=== PATIENT | male | born 1940 | race Caucasian/White ===

== ENCOUNTER 2022-04-08 06:38 | Inpatient (IN) | payer MEDICARE ==
[2022-04-08] MEDS ORDERED: ALBUTEROL 2.5 MG/3 ML NEBU IH ONE (07:41)
[2022-04-08] MEDS ORDERED: IPRATROPIUM 0.02% NEBU 2.5 ML IH ONE (07:41)
--- NOTE | 2022-04-08 08:01 | Emergency Department Report ---
ED Shortness of Breath HPI - General Chief Complaint: Dyspnea/Respdistress Stated Complaint: COPD/ABDOMINAL PAIN Time Seen by Provider: 04/08/22 07:29 Source: patient, family, old records reviewed Mode of arrival: Ambulatory Limitations: Language Barrier - History of Present Illness Initial Comments: 82-year-old male presents to the hospital complaining of shortness of breath since last night. EMS came to the home but patient ultimately was taken to [place] last night by a family member. After [place] work-up and evaluation patient was sent to the ER here. Patient was initially evaluated on June 05 and then returned last night for evaluation due to shortness of breath. Patient was seen on June 05 prescribed several medications without improvement. No fever reported. Patient denies home oxygen use. Son at the bedside is translating however, patient and family member cannot provide detailed past medical history therefore [place] medical record reviewed On June 05 (4 days ago) patient was prescribed the following (in addition to his current medication) Fluconazole on, Bactrim, prednisone 6-day taper, and Vistaril as needed itching. As per [place] records patient has a history hypertension, BPH, CAD, emphysema, mitral valve regurgitation, aortic valve regurgitation, atherosclerosis of the aorta, and a renal cyst [place] physician documented patient at a chronic cough x6 months, a remote history of smoking with a diagnosis of emphysema bronchiectasis. Patient had an echo on August 08 showing normal EF with mild MR and AR. Patient reported shortness of breath (presented with respiratory distress), reports of syncope the prior day, and abdominal pain and received evaluation. He was noted to have wheezing in all storm with abdominal distention with generalized tenderness. He was also noted to have orthostatic hypotension and dizziness with increased heart rate with standing. Labs included a normal troponin, WBC count of 16.5, normal TSH, and mild electrolyte abnormalities including sodium of 129, chloride of 95, glucose 132, BUN 31, creatinine 1.6 with normal potassium of 5.2. LFTs normal. Patient received the following imaging studies CT abdomen pelvis with IV contrast showing no acute abnormality. Bowel dilatation without obstruction. Moderate fecal retention in the colon with feces present in the distal ileum suggestive of slow bowel transit and stasis. Emphysema and scarring/atelectasis noted at the lower thorax. Multiple renal cysts bilaterally largest 4.5 cm on the right without hydronephrosis. CT chest without IV contrast: Moderate diffuse emphysema cannot exclude mild bronchitis (mild bronchial wall thickening in the lower lung zones bilaterally with minimal mucous plugging in the left lower lobe) Chest x-ray 2 views: No acute finding During treatment at [facility] patient was treated with several nebulized treatments, Solu-Medrol, Toradol, Zofran, normal saline, lactulose, Reglan, milk of magnesium, Protonix, and guaifenesin AC prior to ED presentatonb - Related Data Previous Rx's Medication Instructions Recorded Last Taken Type Albuterol *Only Ed* [Proventil 2.5 mg IH TIDRT #1 nebu 11/10/15 Unknown Rx 0.5% NEBS] Dutasteride [Avodart] 0.5 mg PO QDAY #30 capsule 11/10/15 Unknown Rx Loratadine (Nf) [Claritin (Nf)] 10 mg PO DAILY #10 tablet 11/10/15 Unknown Rx amLODIPine 10 mg PO DAILY #30 tablet 11/10/15 Unknown Rx carvediloL [Coreg] 6.25 mg PO BID #60 tablet 11/10/15 Unknown Rx guaiFENesin/CODEINE [Robitussin AC] 5 ml PO Q4H PRN #20 oral.liqd 11/10/15 Unknown Rx levoFLOXacin [Levaquin TAB] 500 mg PO QDAY #4 tablet 11/10/15 Unknown Rx Allergies Allergy/AdvReac Type Severity Reaction Status Date / Time No Known Allergies Allergy Verified 11/07/15 11:54 ED Review of Systems ROS: Stated complaint: COPD/ABDOMINAL PAIN Other details as noted in HPI Comment: All other systems reviewed and negative ED Past Medical Hx - Past Medical History Previous Medical History?: Yes Hx Hypertension: Yes Additional medical history: CAD, BPH, Eczema. Eczema - Surgical History Past Surgical History?: Yes Additional Surgical History: back surgery - Social History Smoking Status: Never Smoker Substance Use Type: None - Medications Home Medications: Home Medications Medication Instructions Recorded Confirmed Last Taken Type Albuterol *Only Ed* [Proventil 2.5 mg IH TIDRT #1 nebu 11/10/15 Unknown Rx 0.5% NEBS] Dutasteride [Avodart] 0.5 mg PO QDAY #30 capsule 11/10/15 Unknown Rx Loratadine (Nf) [Claritin (Nf)] 10 mg PO DAILY #10 tablet 03/24/16 Unknown Rx amLODIPine 10 mg PO DAILY #30 tablet 11/10/15 Unknown Rx carvediloL [Coreg] 6.25 mg PO BID #60 tablet 11/10/15 Unknown Rx guaiFENesin/CODEINE [Robitussin AC] 5 ml PO Q4H PRN #20 oral.liqd 11/10/15 Unknown Rx levoFLOXacin [Levaquin TAB] 500 mg PO QDAY #4 tablet 11/10/15 Unknown Rx ED Physical Exam - General Limitations: No Limitations - Other Other exam information: General: No acute distress Head: Atraumatic Eyes: normal appearance ENT: Moist mucous membranes Neck: Normal appearance, no midline tenderness Chest: Frequent cough, bilateral wheezing CV: Regular rate and rhythm Abdomen: Soft, normal bowel sounds, nontender, nondistended, no rebound or guarding Back: Normal inspection Extremity: Normal inspection, full range of motion, no calf tenderness or leg edema Neuro: Alert, no facial asymmetry, speech clear, no gross motor sensory deficit Psych: Appropriate behavior Skin: No rash ED Course Vital Signs 04/08/22 04/08/22 04/08/22 06:38 08:13 09:53 Temperature 98 F Pulse Rate 105 H 74 Pulse Rate [ 88 Anterior] Respiratory 18 18 Rate Respiratory 22 Rate [Anterior] Blood Pressure 165/82 Blood Pressure 134/66 [Left] O2 Sat by Pulse 96 99 Oximetry 04/08/22 04/08/22 11:31 11:39 Temperature Pulse Rate 98 H 99 H Pulse Rate [ Anterior] Respiratory 18 19 Rate Respiratory Rate [Anterior] Blood Pressure Blood Pressure 145/68 146/76 [Left] O2 Sat by Pulse 99 99 Oximetry - Consultations Consultation #1: 04/08/22 09:50 case d/w Shiraz [place]aney who granted permission to admit here - ABG Interpretation Ph: 7.4 PCO2: 30 PO2: 62 Bicarbonate: 18 Interpretation: other (mild hypoxia) Additional Comments: room air blood gas ED Medical Decision Making - Lab Data Result diagrams: 04/08/22 07:52 04/08/22 07:52 Lab Results 04/08/22 04/08/22 04/08/22 Range/Units 07:52 07:52 Unknown WBC 14.3 H (4.5-11.0) K/mm3 RBC 3.90 (3.65-5.03) M/mm3 Hgb 12.5 (11.8-15.2) gm/dl Hct 36.8 (35.5-45.6) % MCV 94 (84-94) fl MCH 32 (28-32) pg MCHC 34 (32-34) % RDW 13.3 (13.2-15.2) % Plt Count 284 (140-440) K/mm3 Seg Neutrophils % [employer] ABG pH 7.403 (7.350-7.450) pH Units ABG pCO2 30.3 mm Hg ABG pO2 62.5 L (80.0-90.0) mm Hg ABG HCO3 18.5 L (20.0-26.0) mmol/L ABG O2 Saturation 92.9 L (95.0-99.0) % ABG O2 Content 16.4 (0.0-44) ABG Base Excess -5.1 L (-2.0-3.0) mmol/L ABG Hemoglobin 12.8 L (14.0-18.0) gm/dl ABG Carboxyhemoglobin 1.3 (0.0-5.0) % ABG Methemoglobin 0.7 (0.0-1.5) % Oxyhemoglobin 91.1 L (95.0-99.0) % FiO2 21 % Sodium 130 L (137-145) mmol/L Potassium 4.8 (3.6-5.0) mmol/L Chloride 97.7 L (98-107) mmol/L Carbon Dioxide 21 L (22-30) mmol/L Anion Gap 16 mmol/L BUN 30 H (9-20) mg/dL Creatinine 1.6 H (0.8-1.3) mg/dL Estimated GFR 42 ml/min BUN/Creatinine Ratio 19 % Glucose 142 H (75-100) mg/dL Calcium 8.6 (8.4-10.2) mg/dL Total Bilirubin 0.20 (0.1-1.2) mg/dL AST 23 (5-40) units/L ALT 26 (7-56) units/L Alkaline Phosphatase 53 (35-129) units/L Troponin T < 0.010 (0.00-0.029) ng/mL NT-Pro-B Natriuret Pep 438.4 (0-900) pg/mL Total Protein 6.2 L (6.3-8.2) g/dL Albumin 4.1 (3.9-5) g/dL Albumin/Globulin Ratio 2.0 % - EKG Data -: EKG Interpreted by [facility] EKG shows normal: sinus rhythm (106), ST-T waves (no stemi) Rate: tachycardia - Radiology Data Radiology results: report reviewed XR chest 1V ap INDICATION / CLINICAL INFORMATION: sob. COMPARISON: 11/07/2015 FINDINGS: SUPPORT DEVICES: None. HEART /PULMONARY VASCULATURE: No significant abnormality. LUNGS / PLEURA: Streaky bibasilar volume loss. No focal airspace consolidation. No sizable pleural effusion.. No pneumothorax. ADDITIONAL FINDINGS: No significant additional findings. IMPRESSION: 1. No acute findings. - Medical Decision Making 32-year old male presents to the hospital with persistent wheezing despite outpatient treatment and recent [facility] treatment for wheezing and shortness of breath. Patient did endorse chest pain and has negative troponin here and prior to arrival without ischemic findings on EKG. Chest x-ray unremarkable. ABG shows hypoxia without CO2 retention or acid-base disturbance. Patient treated in the ED with additional nebs and received steroids and magnesium prior to ED arrival. Case anneliese with [place] doctor who granted permission to admit here. Case discussed with hospitalist for admission Critical Care Time: No Critical care attestation.: If time is entered above; I have spent that time in minutes in the direct care of this critically ill patient, excluding procedure time. ED Disposition Clinical Impression: COPD with acute exacerbation, Failure of outpatient treatment, Renal insufficiency Disposition: ADMITTED INPATIENT Is pt being admited?: Yes Does the pt Need Aspirin: No Condition: Stable Time of Disposition: 10:10 (Dr Espinal/hospitalist)
--- NOTE | 2022-04-08 08:03 | XRay Report ---
XR chest 1V ap INDICATION / CLINICAL INFORMATION: sob. COMPARISON: 11/07/2015 FINDINGS: SUPPORT DEVICES: None. HEART /PULMONARY VASCULATURE: No significant abnormality. LUNGS / PLEURA: Streaky bibasilar volume loss. No focal airspace consolidation. No sizable pleural ef fusion.. No pneumothorax. ADDITIONAL FINDINGS: No significant additional findings. IMPRESSION: 1. No acute findings. Signer Name: Lexa Bernardo MD Signed: 04/08/2022 7:58 AM Workstation Name: [id number]
[2022-04-08 08:25] LABS: ABG Base Excess -5.1 mmol/L (-2.0-3.0); ABG HCO3 18.5 mmol/L (20.0-26.0); ABG Methemoglobin 0.7 % (0.0-1.5); ABG Oxygen Saturation 92.9 % (95.0-99.0); ABG PCO2 30.3 mm Hg; ABG PH 7.403 pH Units (7.350-7.450); ABG PO2 62.5 mm Hg (80.0-90.0)
[2022-04-08 08:30] LABS: Hematocrit 36.8 % (35.5-45.6); Hemoglobin 12.5 gm/dl (11.8-15.2); Mean Corpuscular HGB Conc 34 % (32-34); Mean Corpuscular Volume 94 fl (84-94); Platelet Count 284 K/mm3 (140-440); Red Cell Distribution Width 13.3 % (13.2-15.2)
[2022-04-08 08:37] LABS: Alanine Aminotransferase 26 units/L (7-56); Albumin 4.1 g/dL (3.9-5); BUN/Creatinine Ratio 19; Blood Urea Nitrogen 30 mg/dL (9-20); Calcium 8.6 mg/dL (8.4-10.2); Hemolysis Index 3
[2022-04-08] MEDS ORDERED: SODIUM CHLORIDE 0.9% 1000 ML 1,000 ML IV ONE (09:28)
[2022-04-08] MEDS ORDERED: ONDANSETRON 4 MG/2 ML INJ IV PRN ×2 (10:11→12:02)
[2022-04-08] MEDS ORDERED: ACETAMINOPHEN 325 MG TAB PO PRN ×2 (10:11→12:02)
[2022-04-08] MEDS ORDERED: MORPHINE 2 MG/1 ML INJ IV PRN (10:12)
[2022-04-08] MEDS ORDERED: hydrALAZINE 20 MG/1 ML INJ IV PRN (12:02)
[2022-04-08] MEDS ORDERED: HYDROcodone/ACETAMINOPHEN 5-325 MG TAB PO PRN (12:02)
[2022-04-08] MEDS ORDERED: ALBUTEROL 8.5 GM MDI INHALATION IH PRN (12:02)
--- NOTE | 2022-04-08 12:13 | History and Physical Report ---
History of Present Illness Date of examination: 04/08/22 Date of admission: 04/08/22 Chief complaint: SOB History of present illness: Patient is a 75-year-old [place] male with past medical history of hypertension, BPH who comes in with complaints of shortness of breath for last few days and has been progressively getting worse. Symptoms associated with the productive cough with greenish phlegm. Otherwise no other complaints. Denies any orthopnea or PND. Denies any leg swelling. Denies any fever, chills, headache, dizziness, nausea, vomiting, chest pain, abdominal pain or bowel disturbances. Patient does a chronic trouble urinating and has been on the Avodart. Patient found to be hypoxic at 88% upon initial presentation to the ED. Subsequent testing including chest x-ray did not reveal any acute pathology. However, patient continued to have some dyspnea with wheezing and therefore admitted to hospitalist service for further management. Labs included a normal troponin, WBC count of 16.5, normal TSH, and mild electrolyte abnormalities including sodium of 129, chloride of 95, glucose 132, BUN 31, creatinine 1.6 with normal potassium of 5.2. LFTs normal. Past History Past Medical History: hypertension, other (BPH) Past Surgical History: No surgical history Social history: , lives with family, smoking (half-pack per day for 20 years. Quit smoking 20 years ago.), alcohol abuse (occasional beer), full code. denies: IV drug use Family history: no significant family history Review of System: Constitutional: no fever, no chills, no weight loss Ears, eyes, nose, mouth and throat: no nasal congestion, no nasal discharge, no sinus pressure, no vision change, no red eye. Neck: No neck pain or rigidity. Cardiovascular: No chest pain, no orthopnea, no palpitations, no leg swelling Respiratory: + shortness of breath, + cough, no congestion, + wheezing Gastrointestinal: no abdominal pain, no nausea, no vomiting Genitourinary : no dysuria, no hematuria Musculoskeletal: no joint swelling or muscle ache Integumentary: no rash, no pruritis Neurological: no parathesias, no numbness, no tingling Endocrine: no cold or heat intolerance, no polyuria or polydipsia Hematologic/Lymphatic: no easy bruising, no easy bleeding, no gland swelling Allergic/Immunologic: no urticaria, no angioedema. Medications and Allergies Allergies Allergy/AdvReac Type Severity Reaction Status Date / Time No Known Allergies Allergy Verified 11/07/15 11:54 Home Medications Medication Instructions Recorded Confirmed Last Taken Type Albuterol *Only Ed* [Proventil 2.5 mg IH TIDRT #1 nebu 11/10/15 Unknown Rx 0.5% NEBS] Dutasteride [Avodart] 0.5 mg PO QDAY #30 capsule 11/10/15 Unknown Rx Loratadine (Nf) [Claritin (Nf)] 10 mg PO DAILY #10 tablet 11/10/15 Unknown Rx amLODIPine 10 mg PO DAILY #30 tablet 11/10/15 Unknown Rx carvediloL [Coreg] 6.25 mg PO BID #60 tablet 11/10/15 Unknown Rx guaiFENesin/CODEINE [Robitussin AC] 5 ml PO Q4H PRN #20 oral.liqd 11/10/15 Unknown Rx levoFLOXacin [Levaquin TAB] 500 mg PO QDAY #4 tablet 11/10/15 Unknown Rx Active Meds: Active Medications Acetaminophen (Acetaminophen 325 Mg Tab) 650 mg PO Q4H PRN PRN Reason: Pain MILD(1-3)/Fever >100.5/ZHOU Acetaminophen (Acetaminophen 325 Mg Tab) 650 mg PO Q4H PRN PRN Reason: Pain MILD(1-3)/Fever >100.5/ZHOU Hydrocodone Bitart/Acetaminophen (Hydrocodone/Acetaminophen 5-325 Mg Tab) 2 each PO Q6H PRN PRN Reason: Pain, Moderate (4-6) Albuterol (Albuterol 8.5 Gm Mdi Inhalation) 2 puff IH Q4HRT PRN PRN Reason: Shortness Of Breath Albuterol/Ipratropium (Ipratropium/Albuterol Sulfate 3 Ml Ampul.Neb) 1 ampul IH Q6HRT ALEJANDRO Amlodipine Besylate (Amlodipine 10 Mg Tab) 10 mg PO DAILY ALEJANDRO Famotidine (Famotidine 10 Mg Tab) 10 mg PO BID ALEJANDRO Hydralazine HCl (Hydralazine 20 Mg/1 Ml Inj) 5 mg IV Q30MIN PRN PRN Reason: Hypertension Sodium Chloride (Nacl 0.9% 1000 Ml) 1,000 mls @ 125 mls/hr IV ONCE ONE Stop: 04/08/22 17:27 Last Admin: 04/08/22 09:49 Dose: 125 mls/hr Levofloxacin/Dextrose (Levaquin 750mg/150ml) 750 mg in 150 mls @ 100 mls/hr IV Q24HR ALEJANDRO; Protocol Insulin Human Regular (Insulin Regular, Human 100 Units/1 Ml) 0 units SUB-Q ACHS ALEJANDRO; Protocol Methylprednisolone Sodium Succinate (Methylprednisolone Sod Succinate 40 Mg/1 Ml Inj) 40 mg IV Q8HR ALEJANDRO Morphine Sulfate (Morphine 2 Mg/1 Ml Inj) 2 mg IV Q4H PRN PRN Reason: Pain, Moderate (4-6) Ondansetron HCl (Ondansetron 4 Mg/2 Ml Inj) 4 mg IV Q8H PRN PRN Reason: Nausea And Vomiting Ondansetron HCl (Ondansetron 4 Mg/2 Ml Inj) 4 mg IV Q8H PRN PRN Reason: N/V unrelieved by Reglan Sodium Chloride (Sodium Chloride 0.9% 10 Ml Flush Syringe) 10 ml IV BID ALEJANDRO Sodium Chloride (Sodium Chloride 0.9% 10 Ml Flush Syringe) 10 ml IV PRN PRN PRN Reason: LINE FLUSH Exam - Physical Exam Narrative exam: General appearance: Present: no acute distress - EENT Eyes: Present: PERRL, EOM intact. Absent: scleral icterus, conjunctival injection ENT: clear oral mucosa, no oropharyngeal erythema, no thrush - Neck Neck: Present: supple, normal ROM. Absent: masses or JVD, cervical LAD - Respiratory Respiratory effort: normal Respiratory: bilateral: diminished (slightly), rhonchi (diffuse), wheezing (mild expiratory) - Cardiovascular Rhythm: regular Heart Sounds: Present: S1 & S2 - Extremities Extremities: pulses intact, No edema - Abdominal General gastrointestinal: Present: soft, non-tender, non-distended, normal bowel sounds Male genitourinary: Present: deferred - Rectal Rectal Exam: deferred - Integumentary Integumentary: Present: warm, dry. Absent: rash - Musculoskeletal Musculoskeletal: strength equal bilaterally - Psychiatric Psychiatric: appropriate mood/affect, cooperative - Neurologic Neurologic: no focal deficits, moves all extremities - Constitutional Vitals: Temp Pulse Resp BP Pulse Ox 98 F 99 H 19 146/76 99 04/08/22 06:38 04/08/22 11:39 04/08/22 11:39 04/08/22 11:39 04/08/22 11:39 HEART Score - HEART Score Troponin: Troponin T < 0.010 ng/mL (0.00-0.029) 04/08/22 07:52 Results - Labs CBC & Chem 7: 04/08/22 07:52 04/09/22 10:35 Labs: Abnormal lab results 04/08/22 04/08/22 04/08/22 Range/Units 07:52 07:52 Unknown WBC 14.3 H (4.5-11.0) K/mm3 ABG pO2 62.5 L (80.0-90.0) mm Hg ABG HCO3 18.5 L (20.0-26.0) mmol/L ABG O2 Saturation 92.9 L (95.0-99.0) % ABG Base Excess -5.1 L (-2.0-3.0) mmol/L ABG Hemoglobin 12.8 L (14.0-18.0) gm/dl Oxyhemoglobin 91.1 L (95.0-99.0) % Sodium 130 L (137-145) mmol/L Chloride 97.7 L (98-107) mmol/L Carbon Dioxide 21 L (22-30) mmol/L BUN 30 H (9-20) mg/dL Creatinine 1.6 H (0.8-1.3) mg/dL Glucose 142 H (75-100) mg/dL Total Protein 6.2 L (6.3-8.2) g/dL - Imaging and Cardiology Chest x-ray: report reviewed (no acute process ) Assessment and Plan -- Acute bronchitis --Acute hypoxic respiratory failure -- interstitial lung disease --SIRS with leukocytosis - likely secondary to above -- hyponatremia --YUAN with vasomotor nephropathy -- BPH -- hypertension -Admit to medical floor -Telemetry monitoring -Oxygen to keep sats above 93% via nasal cannula -We'll place on IV fluids normal saline at 75 mils per hour -Patient given Solu-Medrol 125 mg IV in ED - we'll continue 40 mg IV every 8h -We'll place on albuterol nebs when necessary and Pulmicort twice a day -We will place him on Levaquin IV -Restart patient's home medications of Coreg, amlodipine, Avodart for now -Follow-up on repeat labs in a.m. -Consider pulmonary consult tomorrow if no improvement -We will continue to monitor
[2022-04-08 12:50] LABS: Total Cells Counted 100
[2022-04-08 12:51] LABS: Basophils % (Manual) 0 % (0.0-1.8); Eosinophils % (Manual) 0 % (0.0-4.3); Monocytes % (Manual) 0 % (0.0-7.3)
[2022-04-08 12:52] LABS: RBC Morphology Normal
[2022-04-08 12:53] LABS: Platelet Estimate Consistent w Auto
[2022-04-08] MEDS: IPRATROPIUM/ALBUTEROL SULFATE 3 ML AMPUL.NEB IH SCH ×2 (13:45→20:12)
[2022-04-08] MEDS: amLODIPine 10 MG TAB PO SCH (15:56)
[2022-04-08] MEDS: methylPREDNISolone Sod Succinate 40 MG/1 ML INJ IV SCH ×2 (16:15→21:23)
[2022-04-08] MEDS: INSULIN REGULAR, HUMAN 100 UNITS/1 ML SUB-Q SCH ×2 (17:08→23:58)
[2022-04-08] MEDS: FAMOTIDINE 10 MG TAB PO SCH (21:23)
[2022-04-08] MEDS ORDERED: ENOXAPARIN 40 MG/0.4 ML INJ SUB-Q SCH (22:00)
[2022-04-09] MEDS: IPRATROPIUM/ALBUTEROL SULFATE 3 ML AMPUL.NEB IH SCH ×3 (01:57→13:50)
[2022-04-09 05:47] VITALS: BP 143/71
[2022-04-09] MEDS: methylPREDNISolone Sod Succinate 40 MG/1 ML INJ IV SCH ×2 (05:48→14:47)
[2022-04-09] MEDS ORDERED: ALBUTEROL 2.5 MG/3 ML NEBU IH PRN (08:01)
[2022-04-09] MEDS: FAMOTIDINE 10 MG TAB PO SCH (09:13)
[2022-04-09] MEDS: amLODIPine 10 MG TAB PO SCH (09:13)
[2022-04-09] MEDS: INSULIN REGULAR, HUMAN 100 UNITS/1 ML SUB-Q SCH ×2 (09:33→12:55)
[2022-04-09 11:30] LABS: Calcium 9.1 mg/dL (8.4-10.2)
--- NOTE | 2022-04-09 15:31 | Discharge Summary ---
Providers - Providers Date of Admission: 04/08/22 12:08 Date of discharge: 04/09/22 Attending physician: GISEL WRIGHT Primary care physician: LEIA UNGER Hospitalization Condition: Stable Disposition: 01 HOME / SELF CARE / HOMELESS Final Discharge Diagnosis (Prints w/discharge instructions): -- Acute bronchitis. --Acute hypoxic respiratory failure. -- interstitial lung disease. --SIRS with leukocytosis - likely secondary to above. -- hyponatremia. --YUAN with vasomotor nephropathy. -- BPH. -- hypertension Time spent for discharge: 34 minutes Core Measure Documentation - Palliative Care Palliative Care/ Comfort Measures: Not Applicable - Core Measures Any of the following diagnoses?: none Exam - Physical Exam Narrative exam: General appearance: Present: no acute distress - EENT Eyes: Present: PERRL, EOM intact. Absent: scleral icterus, conjunctival injection ENT: clear oral mucosa, no oropharyngeal erythema, no thrush - Neck Neck: Present: supple, normal ROM. Absent: masses or JVD, cervical LAD - Respiratory Respiratory effort: normal Respiratory: bilateral: diminished (slightly), rhonchi (diffuse), wheezing (mild expiratory) - Cardiovascular Rhythm: regular Heart Sounds: Present: S1 & S2 - Extremities Extremities: pulses intact, No edema - Abdominal General gastrointestinal: Present: soft, non-tender, non-distended, normal bowel sounds Male genitourinary: Present: deferred - Rectal Rectal Exam: deferred - Integumentary Integumentary: Present: warm, dry. Absent: rash - Musculoskeletal Musculoskeletal: strength equal bilaterally - Psychiatric Psychiatric: appropriate mood/affect, cooperative - Neurologic Neurologic: no focal deficits, moves all extremities - Constitutional Vitals: Temp Pulse Resp BP Pulse Ox 97.5 F L 72 18 143/71 97 04/09/22 05:41 04/09/22 14:00 04/09/22 14:00 04/09/22 05:41 04/09/22 14:00 Plan Activity: advance as tolerated Weight Bearing Status: Weight Bear as Tolerated Diet: low fat, low salt Follow up with: LEIA UNGER MD [Primary Care Provider] - 7 Days Prescriptions: predniSONE [Deltasone] 5 mg PO .TAPER #21 tab levoFLOXacin [Levaquin TAB] 500 mg PO QDAY #4 tablet
--- NOTE | 2022-04-10 13:52 | Electrocardiograph Report ---
[facility] Test Date: 2022-04-08 Test Time: 09:54:16 Pat Name: JAVED SHERMAN Department: Room: A368 Gender: M Yard Clerk: RICARDO : 1940 Requested By: MARY FREED Order Number: [id number] Reading MD: Pipe Phipps Measurements Intervals [place] Rate: 106 P: 50 NE: 180 QRS: -37 QRSD: 91 T: 36 QT: 359 QTc: 476 Interpretive Statements Sinus tachycardia Left axis deviation No previous ECG available for comparison Electronically Signed On 04-10-2022 13:52:05 EDT by Pipe Phipps
== END 2022-04-09 17:04 | disposition home or self-care (01) | DRG 189 ==
LOC: ED 06:38 → 3A 12:08
PROVIDERS: ADMIT Internal Medicine; ATTEND Internal Medicine
PROC: 4A033R1 Measurement of Arterial Saturation, Peripheral, Percutaneous Approach (ICD-10-PCS; principal; 2022-04-08)
DX: J96.01 Acute respiratory failure with hypoxia (principal); N17.0 Acute kidney failure with tubular necrosis; E87.1 Hypo-osmolality and hyponatremia; R65.10 Systemic inflammatory response syndrome (SIRS) of non-infectious origin without acute organ dysfunction; J84.9 Interstitial pulmonary disease, unspecified; J20.9 Acute bronchitis, unspecified; Z78.9 Other specified health status; I10 Essential (primary) hypertension; I25.10 Atherosclerotic heart disease of native coronary artery without angina pectoris; J43.9 Emphysema, unspecified; N28.9 Disorder of kidney and ureter, unspecified; N40.0 Benign prostatic hyperplasia without lower urinary tract symptoms
CPT/HCPCS: 36415; 71045; 80048; 80053; 82803; 82962; 83880; 84484; 85007; 85025; 93005; 94640; 94644; 94760; 99285; G0378; Q9967; J1650; J1815; J1956; J2270; J2920; J7030